=== PATIENT | female | born 1970 | race Caucasian/White ===

== ENCOUNTER 2020-05-17 10:27 | Day surgery (SDC) | payer OTHER ==
[2020-05-17] MEDS: Lactated Ringers 1,000 ML IV SCH (10:39)
[2020-05-17] MEDS ORDERED: Propofol 200 MG/20 ML SDV ONE ×4 (11:09→12:23)
[2020-05-17] MEDS ORDERED: fentaNYL 100 MCG/2 ML SDV ONE (11:09)
--- NOTE | 2020-05-18 19:06 | OR ---
DATE OF SURGERY: 05/17/2020 REFERRING PROVIDER: Dianne Moncada MD PREOPERATIVE DIAGNOSIS: Screening colonoscopy. This is the patient's first colonoscopy. There is no known family history of colon cancer, at least on her mother's side. POSTOPERATIVE DIAGNOSIS: Normal colon. PROCEDURE: Colonoscopy. SURGEON: Eugenio Ballesteros M.D. ANESTHESIA: Monitored anesthesia care. BOWEL PREP: Good. Mary Jane is a 49-year-old female, was brought to the endoscopy suite after discussing risks and benefits of the procedure. Informed consent was obtained for conscious sedation and colonoscopy with or without biopsy and/or polypectomy. We also discussed possibility of missed lesions. Preprocedure exam was unremarkable. IV, oxygen, and monitors were placed. The patient was placed in the left lateral decubitus position. Sedation was administered and a digital rectal exam was performed and unremarkable. Colonoscope was passed into the rectum and slowly advanced all the way to the cecum. Cecum was viewed and photographed. The colonoscope was slowly withdrawn and the mucosa was closed observed in a direct circumferential manner. The ascending colon was unremarkable. The transverse colon was unremarkable. The descending colon was unremarkable. The sigmoid colon was unremarkable. Retroflexion was performed and rectal mucosa was unremarkable. Scope was removed. The patient tolerated the procedure well. The patient was monitored until that baseline status. Discharge instructions were reviewed and the patient was discharged in good condition. COMPLICATIONS: None. TOTAL TIME: 18 minutes. ESTIMATED BLOOD LOSS: None. RECOMMENDATIONS/FOLLOWUP: Barring any change in personal symptoms or family history, I would recommend a repeat colonoscopy again in 10 years. I would like to kindly thank Dr. Moncada for this referral. DMB: 05/17/2020 14:11:49 MODL: 05/17/2020 20:29:59 /[id number]
== END 2020-05-17 14:02 | disposition home or self-care (01) ==
LOC: VM.SDS 10:27
PROVIDERS: ATTEND Family Medicine
DX: Z12.11 Encounter for screening for malignant neoplasm of colon (principal); E66.9 Obesity, unspecified; E78.2 Mixed hyperlipidemia; L98.9 Disorder of the skin and subcutaneous tissue, unspecified; Z79.899 Other long term (current) drug therapy; Z91.012 Allergy to eggs; Z68.28 Body mass index [BMI] 28.0-28.9, adult; Z01.812 Encounter for preprocedural laboratory examination; Z20.828 Contact with and (suspected) exposure to other viral communicable diseases
CPT/HCPCS: 00812; J2704; J3010; J7120; U0002